=== PATIENT | male | born 1965 | race Caucasian/White ===

== ENCOUNTER 2024-05-12 11:01 | Outpatient (REF) | payer OTHER, SELFPAY ==
[2024-05-12 12:43] LABS: MANUAL DIFF FLAG NO
[2024-05-12 13:24] LABS: Basophils Absolute Auto 0.1 X10*3/uL (0.0-0.2); Basophils Percent Auto 0.8 % (0-2); Eosinophils Absolute Auto 0.2 X10*3/uL (0.0-0.4); Eosinophils Percent Auto 3.9 % (0-4); Hemoglobin 14.9 g/dl (14.0-18.0); Imm Gran Abs Auto 0.04 X10*3/uL (0.00-0.03); Imm Gran Pct Auto 0.6 % (0.0-0.4); Lymphocytes Absolute Auto 1.8 X10*3/uL (1.2-4.9); Lymphocytes Percent Auto 28.6 % (20-40); Mean Corpuscular HGB Conc 33.1 g/dl (31.0-36.0); Mean Corpuscular Hemoglobin 28.4 pg (27.0-33.0); Mean Corpuscular Volume 85.7 fL (80.0-98.0); Mean Platelet Volume 8.6 fL (9.4-12.4); Monocytes Absolute Auto 0.6 X10*3/uL (0.1-1.2); Neutrophils Absolute Auto 3.5 x10*3/uL (2.0-8.3); Neutrophils Percent Auto 56.1 % (45-73); Platelet Count 295 X10*3/uL (160-400); Red Blood Count 5.25 X10*6/uL (4.60-5.80); White Blood Count 6.2 X10*3/uL (4.8-10.8)
[2024-05-12 13:58] LABS: Alanine Aminotransferase 17 U/L (0-40); Albumin Level 4.4 g/dL (3.5-5.0); Alkaline Phosphatase 103 U/L (39-117); Anion Gap 11 (12-20); Aspartate Amino Transferase 21 U/L (5-37); Bilirubin Total 0.2 mg/dL (0.0-1.0); Blood Urea Nitrogen 17 mg/dL (9-16); Calcium 9.7 mg/dL (8.4-10.2); Carbon Dioxide 27 mmol/L (22-29); Chloride 108 mmol/L (96-108); Estimated Glomerular Filt Rate > 60; Glucose Random 100 mg/dL (60-115); Potassium 4.4 mmol/L (3.3-5.1); Sodium 142 mmol/L (135-145); Total Protein 7.5 g/dL (6.5-8.0)
== END 2024-05-12 11:02 | disposition home or self-care (01) ==
LOC: HO.LAB 11:01
PROVIDERS: Visit Provider Nurse Practitioner Psychiatric/Mental Health
DX: F10.20 Alcohol dependence, uncomplicated (principal)
CPT/HCPCS: 36415; 80053; 85025

== ENCOUNTER 2024-05-12 11:01 | Outpatient (AMB) | payer OTHER, SELFPAY ==
--- NOTE | 2024-05-12 11:45 | MHC.AM.SUB ---
Vital Signs 05/12/24 13:46 BP 140/80 H Blood Pressure Location Lt brachial Position Sitting Respiration 22 H Intake Visit Reasons: AUD Allergies No Known Allergies [No Known Allergies*] Allergy (Unverified 02/22/20 19:40) HPI HPI AUD: Details: Patient presents for evaluation and treatment of alcohol use He reports long history of excessive alcohol use, and states that over the last 10 years his use has increased significantly He last drank one week ago on Wednesday He states that while he does not drink daily, he drinks in excessive amounts He reports negative impact on his relationship and finances Full substance use history obtained by RN and reviewed Medical History: -has not seen PCP in a few years -denies any history of withdrawals or withdrawal seizures -reports hospitalization for stomach bleed several years ago -reports vomiting blood but states this is also not a regular or new occurrence -occasional dark stools -denies stomach pain or ascites -denies yellowing of the sclera no medications he takes daily BH History: -reports previous treatment with sertraline which he found was very helpful with his mood -denies any other treatment and is unsure when he was prescribed sertraline -currently experiencing irritability and feeling overwhelmed Supports - -attends one meeting per week Review of Systems Const Reports as per HPI and Reports difficulty sleeping Psych Reports anxiety, Reports difficulty concentrating and Reports irritability Physical Exam Vital Signs: Last Vital Signs Resp 22 H 05/12/24 13:46 BP 140/80 H 05/12/24 13:46 Const General: cooperative and well groomed Nutritional Appearance: overweight Orientation/consciousness: patient oriented x3 Limitations: no limitations Neuro General: patient oriented x3 Gait exam (Neuro): Normal gait present Motor exam (neuro): Tremors during motor activity present Psych Speech and movement: Clear speech present Affect: Anxious affect present Attitude: cooperative Thought process: Circumstantial thought process present Thought content: Normal thought content present Insight: Fair insight present (Psych) Judgement: Fair judgement present (Psych) Assessment & Plan Assessment & Plan (1) Alcohol use disorder, moderate, dependence: Code(s): F10.20 - Alcohol dependence, uncomplicated Category: Medical Plan: lab work ordered zoloft restarted naltrexone --dosing, side effects and goals of treatment reviewed follow up 3 weeks risk reduction discussion and education provided to patient Orders: Orders Comprehensive Met. Panel Today F10.20 - Alcohol dependence, uncomplicated Complete Blood Count Auto Diff Today F10.20 - Alcohol dependence, uncomplicated Medications: New sertraline (Zoloft) Take 1 tab daily for 2 weeks then increase to 2 tabs daily 25 mg PO DAILY 45 tabs 0RF naltrexone take 1/2 tab daily for 3 days then increase to one tab daily 50 mg PO DAILY 30 tabs 0RF MAT Intake Nursing Intake Reason for visit: AUD What are you taking?: Vodka When was your last use?: 1 week ago How much?: approx. 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 If so, who?: No History of self harming thoughts?: No History of homicidal or suicidal intentions?: No Medical Conditions Endocarditis?: No Skin Infection: No Seizure related to withdrawal or overdose: No Head or brain injury: No Hepatitis A (if yes, have you been treated?): No Hepatitis B (if yes, have you been treated?): No Hepatitis C (if yes, have you been treated?): No HIV (if yes, have you been treated?): No TB (if yes, have you been treated?): No Other: No Legal History History of incarceration: No Currently on parole or probation: No Court mandated programs: No Pending court cases: No DCF involvement: No Details: did acknowledge a DUI in the past.
[2024-05-12 13:46] VITALS: BP 140/80; RESP 22
== END 2024-05-12 12:55 | disposition home or self-care (01) ==
PROVIDERS: Visit Provider Nurse Practitioner Psychiatric/Mental Health
DX: F10.20 Alcohol dependence, uncomplicated (principal)
CPT/HCPCS: 99204

== ENCOUNTER 2024-06-30 09:52 | Outpatient (AMB) | payer OTHER, SELFPAY ==
--- NOTE | 2024-06-30 10:14 | A.OFFVISCC_ITS ---
Vital Signs 06/30/24 10:17 BP 130/80 Blood Pressure Location Rt brachial Position Sitting Respiration 19 Pulse 71 Pulse Source Pulse Oximeter Pulse Oximetry (%) 98 Intake Visit Reasons: MAT Office Allergies No Known Allergies [No Known Allergies*] Allergy (Unverified 02/22/20 19:40) HPI HPI MAT Office: Details: Patient presents for AUD treatment follow up Has been tolerating Naltrexone 50mg QHS has not had any alcohol in 2 months Has been going to AA 2x/week Zoloft 50mg daily --feels mood has improved Review of Systems Const Reports as per HPI and Reports no additional complaints Physical Exam Vital Signs: Last Vital Signs Pulse 71 06/30/24 10:17 Resp 19 06/30/24 10:17 BP 130/80 06/30/24 10:17 Pulse Ox 98 06/30/24 10:17 Const General: cooperative and well groomed Orientation/consciousness: patient oriented x3 Limitations: no limitations Neuro General: patient oriented x3 Gait exam (Neuro): Normal gait present Psych Speech and movement: Clear speech present Attitude: cooperative Thought content: Normal thought content present Insight: Good insight present (Psych) Judgement: Good judgement present (Psych) Assessment & Plan Assessment & Plan (1) Alcohol use disorder, moderate, dependence: Code(s): F10.20 - Alcohol dependence, uncomplicated Category: Medical Plan: * continue Naltrexone at current dose * continue sertraline at 50mg QD * follow up 2 months Medications: Discontinued sertraline (Zoloft) Take 1 tab daily for 2 weeks then increase to 2 tabs daily Discontinued Reason: Patient no longer taking 25 mg PO DAILY 45 tabs 0RF
[2024-06-30 10:17] VITALS: BP 130/80; PULSE 71; RESP 19; O2SAT 98
== END 2024-06-30 10:58 | disposition home or self-care (01) ==
PROVIDERS: Visit Provider Nurse Practitioner Psychiatric/Mental Health
DX: F10.20 Alcohol dependence, uncomplicated (principal)
CPT/HCPCS: 99214

== ENCOUNTER → 2024-06-30 09:52 | Outpatient (BNVA) | payer OTHER, SELFPAY | PROVIDERS: Visit Provider Nurse Practitioner Psychiatric/Mental Health ==